=== PATIENT | female | born 1950 | race Caucasian/White ===

== ENCOUNTER 2022-01-21 09:58 | Outpatient (CLI) | payer BC | END 2022-01-21 09:59 | disposition home or self-care (01) | LOC: TBSIIMAG 09:58 | PROVIDERS: ATTEND Neurological Surgery | DX: M47.22 Other spondylosis with radiculopathy, cervical region (principal) | CPT/HCPCS: 72050 ==

== ENCOUNTER 2022-03-07 11:07 | Outpatient (CLI) | payer MEDICARE ==
[2022-03-07 12:14] LABS: Hemoglobin 14.8 g/dL (12.0-15.5); Mean Corpuscular HGB CONC 34.3 g/dL (32.0-36.0); Mean Corpuscular Hemoglobin 30.5 pg (27.0-33.0); Mean Corpuscular Volume 88.9 fl (81.6-98.3); Mean Platelet Volume 9.7 fl (7.4-10.4); Platelet Count 315 10x3/uL (150-450); Red Blood Cell (RBC) Count 4.86 10x6/uL (3.90-5.03); White Blood Cell (WBC) Count 8.3 10x3/uL (3.5-10.5)
[2022-03-07 12:23] LABS: INR-International Normal Ratio 0.9; PTT 24.8 sec (22.0-33.0); Prothrombin Time 9.8 sec (9.5-12.1)
[2022-03-07 12:31] LABS: Anion Gap 15 mmol/L (10-20); BUN (Urea Nitrogen) 13 mg/dL (9.8-20.1); Calc. Creatinine Clearance 0 mL/min (70-130); Calcium 9.8 mg/dL (7.8-10.44); Carbon Dioxide 25 mmol/L (23-31); Chloride 106 mmol/L (98-107); Estimated GFR 82; Glucose 99 mg/dL (83-110); Potassium 4.1 mmol/L (3.5-5.1); Sodium 142 mmol/L (136-145)
== END 2022-03-07 11:08 | disposition home or self-care (01) ==
LOC: LABBT 11:07
PROVIDERS: ATTEND Neurological Surgery
DX: Z01.818 Encounter for other preprocedural examination (principal); M50.222 Other cervical disc displacement at C5-C6 level; Z20.822 Contact with and (suspected) exposure to COVID-19
CPT/HCPCS: 80048; 85027; 85610; 85730; 87811; 93005; 93010

== ENCOUNTER 2022-03-10 10:16 | Day surgery (SDC) | payer MEDICARE ==
[2022-03-08 11:38] VITALS: BMI 26.6
[2022-03-10] MEDS ORDERED: Neomycin-Polymyxin 1 ML AMP ONE (10:33)
[2022-03-10] MEDS ORDERED: Thrombin 5000 UNITS/5 ML VIAL ONE (10:33)
[2022-03-10] MEDS ORDERED: CEFAZOLIN 2 GM VIAL ONE (12:07)
[2022-03-10] MEDS ORDERED: Sodium Chloride 0.9% 100 ML ONE (12:07)
[2022-03-10] MEDS ORDERED: fentaNYL Citrate/PF 100 MCG/2 ML SYRINGE ONE (12:12)
[2022-03-10] MEDS ORDERED: Ketorolac Tromethamine 30 MG/ML VIAL ONE (12:43)
[2022-03-10] MEDS ORDERED: Ondansetron PF 4 MG/2 ML Vial ONE (12:43)
[2022-03-10] MEDS ORDERED: PROPOFOL 200 MG/20 ML VIAL ONE (12:43)
[2022-03-10] MEDS ORDERED: Rocuronium Bromide 10 MG/ML (10ML VIAL) ONE (12:43)
[2022-03-10] MEDS ORDERED: Lidocaine 1% PF 5 ML VIAL ONE (12:43)
[2022-03-10] MEDS ORDERED: Dexamethasone 20 MG/5 ML VIAL ONE (12:43)
[2022-03-10] MEDS ORDERED: HYDROmorphone 2 MG/ML VIAL ONE (13:06)
[2022-03-10] MEDS ORDERED: Fentanyl 100 MCG/2 ML VIAL ONE (16:49)
[2022-03-10] MEDS ORDERED: HYDROcodone/Acetaminophen 5/325 mg Tablet ONE ×2 (17:53)
== END 2022-03-10 18:15 | disposition home or self-care (01) ==
LOC: SDC 10:16
PROVIDERS: ATTEND Neurological Surgery
PROC: 0RG20A0 Fusion of 2 or more Cervical Vertebral Joints with Interbody Fusion Device, Anterior Approach, Anterior Column, Open Approach (ICD-10-PCS; principal; 2022-03-10)
DX: M50.022 Cervical disc disorder at C5-C6 level with myelopathy (principal); M50.122 Cervical disc disorder at C5-C6 level with radiculopathy; M48.02 Spinal stenosis, cervical region; M19.90 Unspecified osteoarthritis, unspecified site; I10 Essential (primary) hypertension; M81.0 Age-related osteoporosis without current pathological fracture; E07.9 Disorder of thyroid, unspecified; Z87.891 Personal history of nicotine dependence; Z79.890 Hormone replacement therapy; Z79.899 Other long term (current) drug therapy; Z88.5 Allergy status to narcotic agent
CPT/HCPCS: 76000; C1713; J0690; J1100; J1170; J1885; J2405; J2704; J3010; J3490

== ENCOUNTER 2022-05-05 12:48 | Outpatient (CLI) | payer MEDICARE | END 2022-05-05 12:49 | disposition home or self-care (01) | LOC: TBSIIMAG 12:48 | PROVIDERS: ATTEND Neurological Surgery | DX: M54.12 Radiculopathy, cervical region (principal); M47.811 Spondylosis without myelopathy or radiculopathy, occipito-atlanto-axial region; M79.89 Other specified soft tissue disorders; Z98.1 Arthrodesis status | CPT/HCPCS: 72040 ==